=== PATIENT | male | born 1935 | race Caucasian/White ===

== ENCOUNTER 2017-06-07 08:29 | Emergency (ER) | payer MEDICARE, OTHER ==
--- NOTE | 2017-06-07 09:01 | ED Physician Documentation ---
PD HPI SYNCOPE - Stated complaint Stated Complaint: PASSED OUT/GLF - Chief complaint Chief Complaint: Neuro - History obtained from History obtained from: Patient - History of Present Illness Witnessed: Unwitnessed Timing - onset: How many minutes ago (30) Duration: Unknown Preceding symptoms: Other (Left eye looked droopy.) Associated symptoms: No: Seizure, Incontinant of urine, Headache, Chest pain, Palpitations, Nausea / vomiting Injury occurred: Fell, Head injury. No: Neck injury Similar symptoms before: No diagnosis (The patient reports similar symptoms with fainting episode years ago.) - Additional information Additional information: The patient is an 81-year-old male who fainted and fell while standing in his bathroom about one half hour prior to arrival. He reports feeling like his left eye was drooping prior to the episode. He was looking in the mirror when he collapsed and awoke when he found himself on the floor. He hit his head on the bathroom scale. He denies headache currently, and denies neck pain. He reports getting up right away and walking over to his neighbors, who called 911. He denies any chest pain, nausea, vomiting, recent fever, or current extremity pain. He reports having a headache yesterday, but not today. He reports chronic shortness of breath due to pulmonary fibrosis, with no recent change. He has had a similar fainting episode years ago, also while in the bathroom after having a bowel movement. Review of Systems Constitutional: denies: Fever Eyes: denies: Decreased vision Ears: denies: Tinnitus/ringing Nose: denies: Congestion Throat: denies: Sore throat Cardiac: denies: Chest pain / pressure, Palpitations Respiratory: reports: Dyspnea (Chronically, with no recent change.). denies: Cough GI: denies: Abdominal Pain, Nausea, Vomiting : denies: Dysuria Skin: reports: Abrasion (s) (Scalp.). denies: Rash Musculoskeletal: denies: Neck pain, Back pain, Extremity pain Neurologic: reports: Syncope, Head injury. denies: Focal weakness, Numbness, Seizure, Altered mental status, Headache PD PAST MEDICAL HISTORY - Past Medical History Cardiovascular: Hypertension Respiratory: Other (Pulmonary fibrosis) Endocrine/Autoimmune: None GI: GERD - Present Medications Home Medications: Ambulatory Orders Medication Instructions Recorded Confirmed Aspirin 81 mg PO DAILY 06/07/17 06/07/17 Lisinopril 10 mg PO DAILY 06/07/17 06/07/17 Metoprolol Succinate 25 mg PO DAILY 06/07/17 06/07/17 Omeprazole [PriLOSEC] 20 mg PO DAILY 06/07/17 06/07/17 Ranitidine HCl [Zantac] 300 mg PO DAILY 06/07/17 06/07/17 Triamterene/Hydrochlorothiazid 1 tab PO DAILY 06/07/17 06/07/17 [Triamterene-Hctz 37.5-25 mg Tb] - Allergies Allergies/Adverse Reactions: Allergies Allergy/AdvReac Type Severity Reaction Status Date / Time No Known Drug Allergies Allergy Verified 06/07/17 08:40 - Living Situation Living Situation: reports: Alone Living Arrangement: reports: At home - Social History Does the pt smoke?: No Does the pt have substance abuse?: No PD ED PE NORMAL - Vitals Vital signs reviewed: Yes (Mild hypertension initially.) - General General: Alert and oriented X 3, Well developed/nourished - HEENT HEENT: PERRL, EOMI, Ears normal, Pharynx benign, Other (There is scalp hematoma at the right parietal region, with superficial abrasion. 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, No motor deficit, No sensory deficit, Normal speech Eye Opening: Spontaneous Motor: Obeys Commands Verbal: Oriented GCS Score: 15 Results - Vitals Vitals: Vital Signs - 24 hr 06/07/17 06/07/17 06/07/17 09:27 10:16 10:30 Heart Rate 65 75 Heart Rate [ 71 Sitting] Heart Rate [ 72 Standing] Heart Rate [ 64 Supine] Respiratory 20 15 Rate Blood Pressure 144/80 H 143/66 H Blood Pressure 140/90 H [Sitting] Blood Pressure 133/77 H [Standing] Blood Pressure 128/79 [Supine] O2 Saturation 100 98 06/07/17 11:47 Heart Rate 68 Heart Rate [ Sitting] Heart Rate [ Standing] Heart Rate [ Supine] Respiratory 16 Rate Blood Pressure 134/65 H Blood Pressure [Sitting] Blood Pressure [Standing] Blood Pressure [Supine] O2 Saturation 98 Oxygen O2 Source Room air - EKG (time done) 08:35 Rate: Rate (enter#) (73) Rhythm: NSR [place]: LAD (Borderline LAD, -28.) Intervals: Normal MA QRS: Normal Ischemia: Normal ST segments Computer interpretation: Agree with computer - Labs Labs: Laboratory Tests 06/07/17 06/07/17 06/07/17 09:33 09:42 09:42 WBC 7.5 RBC 4.22 L Hgb 13.3 L Hct 38.5 L MCV 91.1 MCH 31.4 H MCHC 34.5 RDW 13.0 Plt Count 260 MPV 7.9 Neut # 5.9 Lymph # 0.8 L [place] # 0.6 Eos # 0.1 Baso # 0.0 Absolute Nucleated RBC 0.01 Nucleated RBC % 0.1 Sodium 135 Potassium 4.1 Chloride 97 L Carbon Dioxide 28 Anion Gap 10.0 BUN 31 H Creatinine 1.1 Estimated GFR (MDRD) 64 L Glucose 101 H POC Whole Bld Glucose 91 Calcium 9.8 Total Bilirubin 0.5 AST 33 ALT 23 Alkaline Phosphatase 53 Total Protein 7.4 Albumin 4.5 Globulin 2.9 Albumin/Globulin Ratio 1.6 Lipase 37 Urine Color Urine Clarity Urine pH Ur Specific [place] Urine Protein Urine Glucose (UA) Urine Ketones Urine Occult Blood Urine Nitrite Urine Bilirubin Urine Urobilinogen Ur Leukocyte Esterase Ur Microscopic Review Urine Culture Comments 06/07/17 09:55 WBC RBC Hgb Hct MCV MCH MCHC RDW Plt Count MPV Neut # Lymph # [place] # Eos # Baso # Absolute Nucleated RBC Nucleated RBC % Sodium Potassium Chloride Carbon Dioxide Anion Gap BUN Creatinine Estimated GFR (MDRD) Glucose POC Whole Bld Glucose Calcium Total Bilirubin AST ALT Alkaline Phosphatase Total Protein Albumin Globulin Albumin/Globulin Ratio Lipase Urine Color YELLOW Urine Clarity CLEAR Urine pH 7.0 Ur Specific [place] 1.020 Urine Protein NEGATIVE Urine Glucose (UA) NEGATIVE Urine Ketones NEGATIVE Urine Occult Blood NEGATIVE Urine Nitrite NEGATIVE Urine Bilirubin NEGATIVE Urine Urobilinogen 0.2 (NORMAL) Ur Leukocyte Esterase NEGATIVE Ur Microscopic Review NOT INDICATED Urine Culture Comments NOT INDICATED - Rads (name of study) Head CT Radiology: Prelim report reviewed, EMP read contemporaneously, See rad report ( Small right frontoparietal scalp hematoma. Otherwise normal. No acute intracranial process or other posttraumatic abnormality.) PD MEDICAL DECISION MAKING - ED course Complexity details: reviewed results, re-evaluated patient, considered differential, d/w patient ED course: The patient's presentation is most consistent with syncope, with associated scalp contusion. The underlying cause of the syncope is uncertain, but dehydration appears to be at least a contributingfactor. His labs reveal an elevated BUN to creatinine ratio of 31 over 1.1. There is no cardiac rhythm disturbance on sock drier, and no evidence of acute ischemic abnormality. There is no history to suggest seizure, and CT scan of his head reveals no acute intracranial abnormality. There is no evidence of GI hemorrhage or anemia. Treatment in the emergency department included administration of normal saline 1 L IV. Following this treatment the patient demonstrated ability to ambulate without lightheadedness, and without significant abnormality and orthostatic vital signs. 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 Departure - Departure Disposition: 01 Home, Self Care Clinical Impression: Syncope and collapse, Dehydration Scalp contusion Qualifiers: Encounter type: initial encounter Qualified Code(s): S00.03XA - Contusion of scalp, initial encounter Condition: Stable Instructions: ED Dehydration, ED Fainting Unkn Cause Follow-Up: Emerson Mtz MD [Primary Care Provider] - Comments: Drink plenty of fluids. Follow up with your primary physician within 2 weeks. Call to schedule an appointment. Return to the emergency department if you develop recurrent dizziness or episodes of passing out, or otherwise worsening symptoms. Discharge Date/Time: 06/07/17 11:47
[2017-06-07 09:53] LABS: BASOPHILS % (AUTO) 0.5 %; EOSINOPHILS # (AUTO) 0.1 10^3/uL (0.0-0.7); EOSINOPHILS % (AUTO) 1.4 %; HCT - HEMATOCRIT 38.5 % (42.0-52.0); HGB - HEMOGLOBIN 13.3 g/dL (14.0-18.0); LYMPHOCYTES # (AUTO) 0.8 10^3/uL (1.5-3.5); LYMPHOCYTES % (AUTO) 10.8 %; MEAN CORPUSCULAR HEMOGLOBIN 31.4 pg (27.0-31.0); MEAN CORPUSCULAR HGB CONC 34.5 g/dL (32.0-36.0); MEAN CORPUSCULAR VOLUME 91.1 fL (80.0-94.0); MEAN PLATELET VOLUME 7.9 fL (7.4-11.4); MONOCYTES # (AUTO) 0.6 10^3/uL (0.0-1.0); MONOCYTES % (AUTO) 8.3 %; NEUTROPHILS # (AUTO) 5.9 10^3/uL (1.5-6.6); NUCLEATED RED BLOOD CELLS AUTO 0.1 /100WBC; RED BLOOD COUNT 4.22 10^6/uL (4.70-6.10); UNCORRECTED WHITE BLOOD COUNT 7.5 x10^3/uL; WHITE BLOOD COUNT 7.5 x10^3/uL (4.8-10.8)
--- NOTE | 2017-06-07 09:58 | CT Preliminary Report ---
Exam: CT HEAD W/O IMPRESSION: Small right frontoparietal scalp hematoma. Otherwise normal. No acute intracranial proces s or other post traumatic abnormality. [facility] SITE ID: [id number]
--- NOTE | 2017-06-07 10:01 | CT Report ---
EXAM: CT HEAD WITHOUT CONTRAST EXAM DATE: 06/07/2017 09:32 AM. CLINICAL HISTORY: 81-year-old male with syncopal episode and head injury post-ground level fall. COMPARISON: None. TECHNIQUE: Multiaxial CT images were obtained from the foramen magnum to the vertex on an emergent ba sis. Reformats: Coronal. IV contrast: None. In accordance with CT protocol optimization, one or more of the following dose reduction techniques w ere utilized for this exam: automated exposure control, adjustment of mA and/or KV based on patient s ize, or use of iterative reconstructive technique. FINDINGS: Parenchyma: Mild generalized age-appropriate cerebral and cerebellar atrophy. No intraparenchymal hem orrhage. No evidence of mass, midline shift, or CT findings of infarction. [place]-white differentiation is distinct. Extraaxial Spaces: Normal for age. No subdural or epidural collections identified. Ventricles: Normal in size and position. Sinuses and Orbits: Imaged paranasal sinuses, orbits, and mastoids show no significant abnormality. Bones: No evidence of fracture or calvarial defect. Other: Small right frontal parietal scalp hematoma without underlying osseous abnormality. IMPRESSION: Small right frontoparietal scalp hematoma. Otherwise normal. No acute intracranial proces s or other post traumatic abnormality. [facility] Referring Provider Line: [phone] SITE ID: [id number]
[2017-06-07 10:02] LABS: ALBUMIN/GLOBULIN RATIO 1.6 (1.0-2.2); BILIRUBIN,TOTAL 0.5 mg/dL (0.2-1.0); CALCIUM 9.8 mg/dL (8.5-10.3); CREATININE 1.1 mg/dL (0.6-1.2); POTASSIUM 4.1 mmol/L (3.5-5.0); TOTAL PROTEIN 7.4 g/dL (6.7-8.2)
[2017-06-07] MEDS ORDERED: SODIUM CHLORIDE 0.9% 1,000 ML IV ONE (10:03)
[2017-06-07 10:14] LABS: BILIRUBIN,URINE NEGATIVE (NEGATIVE)
[2017-06-07 10:16] LABS: UA CHARGE (STRIP ONLY) YES; UR CULTURE IF IND NOT INDICATED
[2017-06-07 11:48] VITALS: BP 134/65
== END 2017-06-07 11:47 | disposition home or self-care (01) ==
LOC: ED 08:29
DX: E86.0 Dehydration (principal); R55 Syncope and collapse; S00.03XA Contusion of scalp, initial encounter; W18.39XA Other fall on same level, initial encounter; Y92.012 Bathroom of single-family (private) house as the place of occurrence of the external cause; I10 Essential (primary) hypertension; J84.10 Pulmonary fibrosis, unspecified; K21.9 Gastro-esophageal reflux disease without esophagitis; Z79.82 Long term (current) use of aspirin
CPT/HCPCS: 36415; 70450; 80053; 81001; 81003; 83690; 85025; 87086; 93005; 96360; 99284

== ENCOUNTER 2022-09-01 19:36 | Emergency (ER) | payer MEDICARE ==
[2022-09-01] MEDS ORDERED: TETANUS/DIPHTHERIA/PERTUSSIS 0.5 ML SYRINGE IM ONE (20:38)
--- NOTE | 2022-09-01 21:16 | XRAY Report ---
PROCEDURE: Foot 2 View LT INDICATIONS: puncture wound TECHNIQUE: 2 views of the foot were acquired. COMPARISON: None. FINDINGS: Bones: No fractures or dislocations. No suspicious bony lesions. No foreign body seen. There is a moderate degree of metatarsus primus varus and hallux valgus morphology with mild bunion formation at the medial first metatarsal head. Soft tissues: No tibiotalar joint effusion. Achilles tendon appears normal. IMPRESSION: No fracture or foreign body found. Podiatry related findings discussed above. Reviewed by: Froylan Ortiz MD on 09/01/2022 9:14 PM PDT Approved by: Froylan Ortiz MD on 09/01/2022 9:14 PM PDT Station ID: [id number]
[2022-09-01] MEDS ORDERED: CIPROFLOXACIN 250 MG TABLET PO STA (21:17)
--- NOTE | 2022-09-01 21:20 | ED Physician Documentation ---
PD HPI LOWER EXT INJURY - Stated complaint Stated Complaint: LT FT INJ - Chief complaint Chief Complaint: Wound - History obtained from History obtained from: Patient, Family (Patient's daughter as he is hard of hearing) - History of Present Illness PD HPI LOW EXT INJURY LOCATION: Left, Foot Type of injury: Puncture wound - Additional information Additional information: Patient is presenting for evaluation of a puncture wound to left foot that occurred this afternoon as he was walking in the yard. Patient reports stepping on a piece of wood that had a nail in it which punctured through the sole of his Shoe and into his foot. He does not believe it went in very far. He was able to remove the nail. He is unsure of his last Tetanus. He is not diabetic and denies use of a blood thinner. Review of Systems Constitutional: denies: Fever Cardiac: denies: Chest pain / pressure Respiratory: denies: Dyspnea GI: denies: Abdominal Pain Skin: reports: Other (Puncture wound) PD PAST MEDICAL HISTORY - Past Medical History Past Medical History: Yes Cardiovascular: Hypertension, High cholesterol Respiratory: Other Endocrine/Autoimmune: None GI: GERD - Past Surgical History Past Surgical History: Yes - Present Medications Home Medications: Ambulatory Orders Medication Instructions Recorded Confirmed Aspirin 81 mg PO DAILY 06/07/17 06/07/17 Metoprolol Succinate 25 mg PO DAILY 06/07/17 06/07/17 Omeprazole [PriLOSEC] 20 mg PO DAILY 06/07/17 06/07/17 Triamterene/Hydrochlorothiazid 1 tab PO DAILY 06/07/17 06/07/17 [Triamterene-Hctz 37.5-25 mg Tb] lisinopriL [Lisinopril] 10 mg PO DAILY 06/07/17 06/07/17 raNITIdine HCl [Zantac] 300 mg PO DAILY 06/07/17 06/07/17 Ciprofloxacin HCl [Cipro] 500 mg PO BID 5 Days #10 tablet 09/01/22 - Allergies Allergies/Adverse Reactions: Allergies Allergy/AdvReac Type Severity Reaction Status Date / Time No Known Drug Allergies Allergy Verified 09/01/22 20:01 - Social History Does the pt smoke?: No Smoking Status: Never smoker Does the pt drink ETOH?: No Does the pt have substance abuse?: No - Immunizations Immunizations are current?: No Immunizations: TDAP >10years/unknown - POLST Patient has POLST: No PD ED PE NORMAL - General General: Alert and oriented X 3, No acute distress, Well developed/nourished - HEENT HEENT: Atraumatic - Neck Neck: Supple, no meningeal sign - Cardiac Cardiac: Strong equal pulses - Respiratory Respiratory: No respiratory distress - Extremities Extremities: Other (very small Puncture wound to sole of left foot, no surrounding erythema, swelling or abnormal drainage, pedal pulses intact, no bony tenderness) Results - Vitals Vitals: Vital Signs - 24 hr 09/01/22 09/01/22 19:53 21:26 Temperature 36.6 C 36.9 C Heart Rate 82 67 Respiratory 18 16 Rate Blood Pressure 147/81 H 117/70 O2 Saturation 99 100 Oxygen O2 Source Room air PD Medical Decision Making - ED course Complexity details: re-evaluated patient ED course: Patient is a 6-year-old male presenting for evaluation of puncture wound to his left foot. There is a very small wound present with no overt signs of infection. An x-ray was obtained with no signs of bony injury. No signs of retained foreign body. I also personally interpreted these images.Patient was given a tetanus booster and given a short course of Antibiotics for Prophylaxis given that the nail also went through the sole of his shoe.Patient counseled on concerning symptoms to return for. Departure - Departure Disposition: 01 Home, Self Care Clinical Impression: Puncture wound of left foot Instructions: ED Wound Puncture General Prescriptions: Ciprofloxacin HCl [Cipro] 500 mg PO BID 5 Days #10 tablet Comments: Please continue to keep your wound clean and dry. I have sent a short course of antibiotics to prevent any infection to [facility] in [place]. Please return to the ER with Signs of infection or any new concerns. Discharge Date/Time: 09/01/22 21:26
[2022-09-01 21:27] VITALS: BP 117/70
== END 2022-09-01 21:26 | disposition home or self-care (01) ==
LOC: ED 19:36
DX: S91.332A Puncture wound without foreign body, left foot, initial encounter (principal); W22.8XXA Striking against or struck by other objects, initial encounter; I10 Essential (primary) hypertension; Z23 Encounter for immunization; Z71.85 Encounter for immunization safety counseling
CPT/HCPCS: 73620; 90471; 90715; 99283; A9270